=== PATIENT | female | born 1940 | race Caucasian/White ===

== ENCOUNTER 2018-03-21 05:15 | Day surgery (SDC) | payer OTHER ==
[~2018-03-21] VITALS: Ht 165.1 cm; Wt 73.9 kg
[~2018-03-21 05:15] MED LIST: CARI350T27 PO; CLOP300T2 PO; DICL50TA9 PO; DULO60CA41 PO; IRBE300T40 PO; LEVO100T9 PO; LIP40 PO; LOZ1.25 PO; PRO40 PO; TEMA30CA5 PO
[2018-03-21] MEDS ORDERED: DICY10CA13 PO (06:03)
[2018-03-21 06:31] LABS: ANION GAP 10 (5-15); CALCIUM 9.5 mg/dL (8.4-11.0); CHLORIDE 99 mmol/L (98-107); GLUCOSE 100 mg/dL (70-99); POTASSIUM 3.3 mmol/L (3.5-5.1); SODIUM SERUM 139 mmol/L (136-145); UREA NITROGEN, BLOOD 24 mg/dL (8-21)
[2018-03-21 06:34] LABS: PROTHROMBIN TIME 9.8 SECS (9.5-12.5)
[2018-03-21 06:37] LABS: ALANINE AMINOTRANSFERASE 40 U/L (12-78); ALBUMIN 3.3 g/dL (3.4-4.8); ASPARTATE AMINOTRANSFERASE 24 U/L (10-37); TOTAL BILIRUBIN 0.4 mg/dL (0.0-1.0)
[2018-03-21] MEDS ORDERED: CLINDAMYCIN 600 mg/50mL D5W 50 ML IV ONE (06:56)
[2018-03-21] MEDS ORDERED: CLINDAMYCIN PHOS 600 MG/ D5W 50 ML PREMIX IV ONE (07:00)
[2018-03-21] MEDS ORDERED: LR 1,000 ML IV SCH (10:47)
[2018-03-21] MEDS ORDERED: ONDANSETRON HCL 4 MG/2 ML VIAL IVP PRN ×2 (11:00→12:15)
[2018-03-21] MEDS ORDERED: MEPERIDINE HCL/PF 50 MG/ML AMP IVP PRN ×2 (11:00)
[2018-03-21] MEDS ORDERED: fentaNYL CITRATE 250 MCG/5 ML AMP ONE (11:55)
[2018-03-21] MEDS ORDERED: SEVOFLURANE 15 MIN GAS INH ONE (11:55)
[2018-03-21] MEDS ORDERED: DEXAMETHASONE SOD PHOSPHATE 4 MG/ML VIAL ONE (11:55)
[2018-03-21] MEDS ORDERED: MIDAZOLAM HCL 5 MG/ML VIAL (VERSED) IV ONE (11:55)
[2018-03-21] MEDS ORDERED: fentaNYL CITRATE/PF 100 MCG/2 ML AMP ONE (11:55)
[2018-03-21] MEDS ORDERED: ONDANSETRON HCL 4 MG/2 ML VIAL ONE (11:55)
[2018-03-21] MEDS ORDERED: LR 1,000 ML IV.SOLN IV ONE (11:55)
[2018-03-21] MEDS ORDERED: PROPOFOL 200MG/ 20ML VIAL (DIPRIVAN) IV ONE (11:55)
[2018-03-21] MEDS ORDERED: NS IRRIG SOLN 1000 ML IR ONE (11:55)
[2018-03-21] MEDS ORDERED: SUCCINYLCHOLINE CHLORIDE 20 MG/ML(QUELICIN) ONE (11:55)
[2018-03-21] MEDS ORDERED: LIDOCAINE/EPI 1% 1:100000 20 ML VIAL INJ ONE (11:55)
[2018-03-21] MEDS ORDERED: ONDANSETRON 4 MG ODT TAB PO PRN (12:15)
[2018-03-21] MEDS: MEPERIDINE HCL/PF 25 MG/ML DISP.SYRIN IVP PRN ×2 (12:30→12:52)
[2018-03-21] MEDS ORDERED: MEPERIDINE HCL/PF 25 MG/ML DISP.SYRIN ONE ×2 (12:31→12:57)
[2018-03-21] MEDS ORDERED: hydrALAZINE HCL 20 MG/ML VIAL ONE (12:43)
[2018-03-21] MEDS ORDERED: hydrALAZINE HCL 20 MG/ML VIAL IVP PRN (12:45)
[2018-03-21 13:15] VITALS: BP_SYST 150
[2018-03-21 13:37] VITALS: BP_SYST 150
[2018-03-21] MEDS: KCL 20 mEq in D5/0.45NS 1000mL 1,000 ML IV SCH ×2 (14:00→22:18)
[2018-03-21] MEDS: HYDROmorphone 2 MG TAB PO PRN ×3 (14:51→22:18)
[2018-03-21 16:50] VITALS: BP_SYST 128
[2018-03-21] MEDS ORDERED: TEMAZEPAM 15 MG CAPSULE PO SCH (18:00)
[2018-03-21 20:00] VITALS: BP_SYST 135
[2018-03-21] MEDS: CALCIUM 500 MG/TAB PO SCH (20:24)
[2018-03-21] MEDS: DULoxetine HCL 30 MG CAPSULE.DR (CYMBALTA) PO SCH (20:25)
[2018-03-21] MEDS: PANTOPRAZOLE SODIUM 40 MG TAB PO SCH (20:25)
[2018-03-21] MEDS: DICYCLOMINE HCL 10 MG CAPSULE PO SCH (20:25)
[2018-03-21] MEDS: CARISOPRODOL 350 MG TABLET PO SCH (20:25)
[2018-03-21 21:19] LABS: ALBUMIN 3.1 g/dL (3.4-4.8); CALCIUM 8.7 mg/dL (8.4-11.0)
[2018-03-22 00:27] VITALS: BP_SYST 136
[2018-03-22] MEDS: ACETAMINOPHEN 500 MG TABLET PO PRN ×2 (01:01→06:02)
[2018-03-22] MEDS: KCL 20 mEq in D5/0.45NS 1000mL 1,000 ML IV SCH ×2 (06:40→08:44)
[2018-03-22] MEDS ORDERED: LEVOTHYROXINE SODIUM 0.15 MG TABLET PO SCH (07:00)
[2018-03-22] MEDS: DICYCLOMINE HCL 10 MG CAPSULE PO SCH ×2 (08:51→13:54)
[2018-03-22] MEDS: CARISOPRODOL 350 MG TABLET PO SCH (08:51)
[2018-03-22] MEDS: CALCIUM 500 MG/TAB PO SCH (08:51)
[2018-03-22] MEDS: PANTOPRAZOLE SODIUM 40 MG TAB PO SCH (08:52)
[2018-03-22] MEDS: DULoxetine HCL 30 MG CAPSULE.DR (CYMBALTA) PO SCH (08:53)
[2018-03-22] MEDS ORDERED: ATORVASTATIN 20 MG TABLET PO SCH (09:00)
[2018-03-22] MEDS ORDERED: IRBESARTAN 150 MG TABLET (AVAPRO) PO SCH (09:00)
[2018-03-22] MEDS ORDERED: INDAPAMIDE 1.25 MG TABLET PO SCH (09:00)
[2018-03-22] MEDS ORDERED: LOSARTAN POTASSIUM 50 MG TABLET (COZAAR) PO SCH (09:00)
[2018-03-22 09:07] VITALS: BP_SYST 131
[2018-03-22 11:33] VITALS: BP_SYST 117
[2018-03-22] MEDS: HYDROmorphone 2 MG TAB PO PRN (11:48)
[2018-03-22 13:04] LABS: ALBUMIN 3.3 g/dL (3.4-4.8)
[2018-03-22 14:24] VITALS: BP_SYST 117
== END 2018-03-22 14:48 | disposition home or self-care (01) ==
LOC: SMU 05:15 → SDS 05:15 → SMU 13:08 → STU 18:16 → SDS 03-22 14:48
PROVIDERS: ATTEND Otolaryngology
DX: E04.2 Nontoxic multinodular goiter (principal); Z90.710 Acquired absence of both cervix and uterus; Z90.49 Acquired absence of other specified parts of digestive tract; Z98.890 Other specified postprocedural states; I10 Essential (primary) hypertension; Z88.2 Allergy status to sulfonamides; Z88.8 Allergy status to other drugs, medicaments and biological substances; E66.3 Overweight; J44.9 Chronic obstructive pulmonary disease, unspecified; G62.9 Polyneuropathy, unspecified; K21.9 Gastro-esophageal reflux disease without esophagitis; F32.9 Major depressive disorder, single episode, unspecified; E11.9 Type 2 diabetes mellitus without complications; E78.5 Hyperlipidemia, unspecified; Z79.899 Other long term (current) drug therapy
CPT/HCPCS: 36415; 60240; 71046; 80053; 82040; 82310; 83970; 85610; 85730; 87081 ×2; 88307; 90656; 93005; J0330; J0360; J1100; J2175; J2250; J2405; J2704; J3010 ×2; J3490; J7120